=== PATIENT | male | born 1965 | race Caucasian/White ===

== ENCOUNTER 2018-05-26 18:35 | Emergency (ER) | payer MEDICARE, MEDICAID ==
[2018-05-26] MEDS ORDERED: Lidocaine 4% Top Soln 50 ML Bottle TOP ONE (19:14)
--- NOTE | 2018-05-26 19:30 | EDM.PDOC ---
ED HPI GENERAL MEDICAL PROBLEM - General Chief Complaint: ENT Problem Stated Complaint: L EAR PAIN Time Seen by Provider: 05/26/18 18:43 Source of Information: Reports: Patient History Limitations: Reports: No Limitations - History of Present Illness INITIAL COMMENTS - FREE TEXT/NARRATIVE: "something in my left ear", This is a 53 year old male present to ER for evaluation of ear pain. 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 Today started to have pain. Onset: Today, Sudden Onset Date: 05/24/18 Duration: Day(s):, Getting Worse Location: Reports: Other (left ear) Quality: Reports: Ache, Pressure Severity: Moderate Improves with: Reports: None Worsens with: Reports: None Associated Symptoms: Reports: No Other Symptoms left ear Pain Score (Numeric/FACES): 3 - Related Data Allergies Allergy/AdvReac Type Severity Reaction Status Date / Time cortisone Allergy Dizziness Verified 05/26/18 18:56 Home Meds: Home Meds Levothyroxine 1 tab PO DAILY 05/26/18 [History] Omeprazole 1 tab PO DAILY 05/26/18 [History] amLODIPine Besylate [Amlodipine Besylate] 1 tab PO DAILY 05/26/18 [History] Past Medical History Cardiovascular History: Reports: Hypertension Gastrointestinal History: Reports: GERD Genitourinary History: Reports: Renal Calculus Musculoskeletal History: Reports: Fibromyalgia, Osteoarthritis Endocrine/Metabolic History: Reports: Hypothyroidism, Obesity/BMI 30+ - Past Surgical History GI Surgical History: Reports: Appendectomy Musculoskeletal Surgical History: Reports: Arthroscopic Knee Social & Family History - Tobacco Use Smoking Status *Q: Current Every Day Smoker Years of Tobacco use: 32 Packs/Tins Daily: 0.5 - Caffeine Use Caffeine Use: Reports: Soda - Recreational Drug Use Recreational Drug Use: No ED ROS ENT - Review of Systems Review Of Systems: See Below Constitutional: Reports: Other (left ear pain) HEENT: Reports: Ear Pain Skin: Reports: No Symptoms ED EXAM, ENT - Physical Exam Exam: See Below Exam Limited By: No Limitations General Appearance: Alert, WD/WN, No Apparent Distress Ears: Normal External Exam, Canal Foreign Body (jamel colored material), Canal Swelling (abrasion noted to ear canal, no active bleeding.), TM Erythema Head: Atraumatic, Normocephalic Neck: Normal Inspection, Supple Respiratory/Chest: No Respiratory Distress ED ENT PROCEDURES - Foreign Body Removal Consent Obtained: Patient Foreign Body Other Location Comment:: single jamel f.b. removed from left ear with water flush Anesthesia Type: Local (topical 4% Lidocaine) Complications: No Course - Vital Signs Last Recorded V/S: Last Vital Signs Temp 36.2 C 05/26/18 18:57 Pulse 94 05/26/18 18:57 Resp 18 05/26/18 18:57 BP 146/92 H 05/26/18 18:57 Pulse Ox 97 05/26/18 18:57 - Orders/Labs/Meds Meds: Medications Discontinued Medications Generic Name Dose Route Start Last Admin Trade Name Farhatq PRN Reason Stop Dose Admin Lidocaine HCl 2 ml 05/26/18 19:14 05/26/18 19:25 Xylocaine 4% Top Soln TOP 05/26/18 19:15 2 ml ONETIME ONE Administration Departure - Departure Time of Disposition: 19:38 Disposition: Home, Self-Care 01 Condition: Good Clinical Impression: Foreign body in ear - Discharge Information *PRESCRIPTION DRUG MONITORING PROGRAM REVIEWED*: No *COPY OF PRESCRIPTION DRUG MONITORING REPORT IN PATIENT VARUN: No Instructions: Ear Foreign Body, [id number] Referrals: Hieu Rowe MD [Primary Care Provider] - Forms: ED Department Discharge Care Plan Goals: left ear foreign body, removed -Cortisporin ear drops, 3 drops to left ear 4 times a day for 5 to 7 days -medicate for pain with Tylenol or Motrin -return to ER for any worsen of symptoms or any concerns. - Problem List & Annotations (1) Foreign body in ear SNOMED Code(s): 13982280 Code(s): T16.9XXA - FOREIGN BODY IN EAR, UNSPECIFIED EAR, INITIAL ENCOUNTER Status: Acute Priority: High Current Visit: Yes Qualifiers: Encounter type: initial encounter Laterality: left Qualified Code(s): T16.2XXA - Foreign body in left ear, initial encounter - Problem List Review Problem List Initiated/Reviewed/Updated: Yes - Assessment/Plan Plan: left ear foreign body, removed -Cortisporin ear drops, 3 drops to left ear 4 times a day for 5 to 7 days -medicate for pain with Tylenol or Motrin -return to ER for any worsen of symptoms or any concerns.
== END 2018-05-26 19:49 | disposition home or self-care (01) ==
LOC: JP.ED 18:35
DX: T16.2XXA Foreign body in left ear, initial encounter (principal); I10 Essential (primary) hypertension; F17.210 Nicotine dependence, cigarettes, uncomplicated; Z88.5 Allergy status to narcotic agent; Z79.899 Other long term (current) drug therapy
CPT/HCPCS: 69200; 99282; 99283; A9270

== ENCOUNTER 2018-12-11 07:43 | Day surgery (SDC) | payer MEDICARE, MEDICAID ==
[2018-12-11] MEDS ORDERED: Sodium Chloride 0.9% 1,000 ML IV SCH (08:45)
[2018-12-11] MEDS ORDERED: fentaNYL 100 MCG/2 ML SDV ONE (09:22)
[2018-12-11] MEDS ORDERED: Propofol 200 MG/20 ML SDV ONE (09:22)
[2018-12-11] MEDS ORDERED: Midazolam 1 MG/ML 2 ML SDV ONE (09:22)
--- NOTE | 2018-12-11 12:49 | OR ---
DATE OF PROCEDURE: 12/11/2018 PROCEDURE: Colonoscopy. FINDINGS: 1. Transverse colon polyp, approximately 5 mm, completely removed using snare. 2. Sigmoid colon polyp, approximately 5 mm, completely removed using snare. COMPLICATIONS: None. RESIDENTIAL PLUMBER: None. ANESTHESIA: MAC. PREOPERATIVE DIAGNOSIS: Screening colonoscopy. POSTOPERATIVE DIAGNOSIS: Screening colonoscopy. RISKS: Risks, benefits, alternatives, and limitations including, but not limited to infection, bleeding, and perforation were explained to the patient, who wished to proceed. PROCEDURE IN DETAIL: The patient was placed in a left lateral decubitus position. Digital rectal exam was performed without abnormality. The scope was introduced and advanced atraumatically to the ileocecal valve. The scope was brought back to the ascending, transverse, descending colon, and retroflexed. The aforementioned polyps were identified and completely removed using snare. No abnormal bleeding was noted after the removal. No abnormalities on retroflexion. No diverticulosis. No colitis. No old or new blood. The patient tolerated the procedure well. Mri Dillon MD /[id number]
== END 2018-12-11 11:00 | disposition home or self-care (01) ==
LOC: JP.SDS 07:43
PROVIDERS: ATTEND Surgery
DX: Z12.11 Encounter for screening for malignant neoplasm of colon (principal); D12.3 Benign neoplasm of transverse colon; K63.5 Polyp of colon; I10 Essential (primary) hypertension; K21.9 Gastro-esophageal reflux disease without esophagitis; E03.9 Hypothyroidism, unspecified; Z88.8 Allergy status to other drugs, medicaments and biological substances
CPT/HCPCS: 45385; J2250; J2704; J3010; J7030; 88305